=== PATIENT | female | born 1995 | race Two or more races ===

== ENCOUNTER 2020-02-12 02:42 | Emergency (ER) | payer OTHER ==
[~2020-02-12] VITALS: Ht 154.9 cm; Wt 78.2 kg
[2020-02-12 03:05] VITALS: BP 135/72
[2020-02-12] MEDS ORDERED: PredniSONE 20 MG TABLET PO ONE (03:15)
[2020-02-12] MEDS ORDERED: DiphenhydrAMINE HCL 25 MG CAPSULE PO ONE (03:15)
== END 2020-02-12 04:50 | disposition home or self-care (01) ==
LOC: EDSEX 02:42 → EMS 02:42
DX: T78.40XA Allergy, unspecified, initial encounter (principal); X58.XXXA Exposure to other specified factors, initial encounter
CPT/HCPCS: 99283; J7512

== ENCOUNTER 2025-08-22 13:18 | Emergency (ER) | payer OTHER ==
[~2025-08-22] VITALS: Ht 157.5 cm; Wt 59.1 kg
[2025-08-22 13:30] VITALS: BP 109/79; PULSE 69; RESP 20; TEMP 98.1; O2SAT 99
[2025-08-22 14:39] LABS: APPEARANCE,URINE HAZY (CLEAR); GLUCOSE, URINE (UA) NEGATIVE (NEGATIVE); LEUKOCYTE ESTERASE ,URINE NEGATIVE (NEGATIVE); NITRATE,URINE NEGATIVE (NEGATIVE); OCCULT BLOOD,URINE NEGATIVE (NEGATIVE); SPECIFIC GRAVITIY, URINE 1.025 (1.003-1.030)
[2025-08-22 14:49] LABS: HCG,QUAL URINE NEGATIVE (NEGATIVE)
[2025-08-22] MEDS: LIDOCAINE 5% TRANSDERMAL PATCH TD ONE (15:48)
[2025-08-22] MEDS: KETOROLAC TROMETHAMINE 30 MG/ML VIAL IM ONE (15:48)
[2025-08-22] MEDS ORDERED: IBUP-1492 PO (20:01)
== END 2025-08-22 17:14 | disposition home or self-care (01) ==
LOC: EMS 13:18
DX: M54.50 Low back pain, unspecified (principal); X50.0XXA Overexertion from strenuous movement or load, initial encounter
CPT/HCPCS: 99283; 81001; 84703; 96372; J1885